=== PATIENT | female | born 2000 | race Caucasian/White ===

== ENCOUNTER 2018-01-30 19:34 | Emergency (ER) | payer OTHER ==
[2018-01-30] MEDS: ACETAMINOPHEN 500 MG TAB PO (20:24)
== END 2018-01-30 21:43 | disposition home or self-care (01) ==
LOC: FTE 19:34
DX: H66.91 Otitis media, unspecified, right ear (principal); J06.9 Acute upper respiratory infection, unspecified
CPT/HCPCS: 99283; Z7502

== ENCOUNTER 2019-03-14 13:49 | Emergency (ER) | payer OTHER ==
[2019-03-14] MEDS: KETOROLAC 30 MG INJ IM ×2 (14:27→14:30)
[2019-03-14] MEDS: IBUPROFEN 200 MG TAB PO (14:38)
== END 2019-03-14 14:59 | disposition home or self-care (01) ==
LOC: FTE 14:59
DX: M54.5 Low back pain (principal)
CPT/HCPCS: 72100; 81025; 99283-25